=== PATIENT | male | born 1965 | race Caucasian/White ===

== ENCOUNTER 2022-11-30 16:10 | Outpatient (CLI) | payer BC ==
[~2022-11-30 16:10] MED LIST: ATOR40TA72 PO; CELE100C98 PO; DULO60CA65 PO; GABA300C PO; NALT50TA PO; TADA20TA43 PO; TEST100V11 IM; TRAM50TA2 PO
== END 2022-11-30 23:59 | disposition home or self-care (01) ==
LOC: RAD 16:10
PROVIDERS: ATTEND Specialist
DX: S52.021 Displaced fracture of olecranon process without intraarticular extension of right ulna (principal); S53.106A Unspecified dislocation of unspecified ulnohumeral joint, initial encounter; X58.XXXA Exposure to other specified factors, initial encounter; Y93.89 Activity, other specified; Y92.89 Other specified places as the place of occurrence of the external cause; Y99.8 Other external cause status
CPT/HCPCS: 73200

== ENCOUNTER → 2022-12-21 | Day surgery (SDC) | payer BC ==
[~2022-12-21] VITALS: Ht 180.3 cm; Wt 113.1 kg
[~2022-12-21] MED LIST changes: +BUPIVAcaine/PF 2.5 mg/ml (0.25%) 30ml vial ONE; +MIDAZolam 1 MG/ML 5ML VIAL ONE; -TRAM50TA2 PO; +cefazolin 2gm/D5W 100mL 100 ML IV ONE; +cloNIDine hcl/PF 100mcg/ml inj ONE; +famotidine 20mg tablet PO ONE; +fentaNYL /PF 50mcg/ml 5ml ampule ONE; +meperidine/PF 25mg/ml syringe IV PRN; +morphine 2 MG/ML inj. syringe IV PRN; +morphine 4 MG/ML inj SYRINge IV PRN; +ondansetron/PF 4mg/2ml inj IV PRN; +proCHLORperazine 10 MG/2 ml inj IV PRN; +propofol inj 20 ML IV ONE; +ringers solution, lacted 1,000 ML IV SCH
[2022-12-21 10:20] VITALS: BP 126/79
--- NOTE | 2022-12-21 12:30 | NUR ---
DR REILLY CAME TO SEE THE PATIENT. HE HAS DECIDED TO CANCEL THE SURGERY. I DC'D THE PATIENT'S IV AND HE WENT HOME.
== END | disposition home or self-care (01) ==
LOC: UNDOADMIN 10:11 → PAS IN 10:11 → PAS 10:12 → EDSTATUS 11:30
PROVIDERS: ATTEND Specialist
DX: M25.521 Pain in right elbow (principal); Z53.8 Procedure and treatment not carried out for other reasons; S52.021B Displaced fracture of olecranon process without intraarticular extension of right ulna, initial encounter for open fracture type I or II; S53.106A Unspecified dislocation of unspecified ulnohumeral joint, initial encounter; X58.XXXA Exposure to other specified factors, initial encounter; Y93.89 Activity, other specified; Y92.89 Other specified places as the place of occurrence of the external cause; Y99.8 Other external cause status; Z79.899 Other long term (current) drug therapy; Z72.89 Other problems related to lifestyle; Z98.890 Other specified postprocedural states
CPT/HCPCS: 82948; J0690; J0735; J2250; J2704; J3010; J7120; A6449; J3490

== ENCOUNTER 2023-02-01 10:17 | Outpatient (CLI) | payer BC ==
[~2023-02-01 10:17] MED LIST changes: -BUPIVAcaine/PF 2.5 mg/ml (0.25%) 30ml vial ONE; -MIDAZolam 1 MG/ML 5ML VIAL ONE; -cefazolin 2gm/D5W 100mL 100 ML IV ONE; -cloNIDine hcl/PF 100mcg/ml inj ONE; -famotidine 20mg tablet PO ONE; -fentaNYL /PF 50mcg/ml 5ml ampule ONE; -meperidine/PF 25mg/ml syringe IV PRN; -morphine 2 MG/ML inj. syringe IV PRN; -morphine 4 MG/ML inj SYRINge IV PRN; -ondansetron/PF 4mg/2ml inj IV PRN; -proCHLORperazine 10 MG/2 ml inj IV PRN; -propofol inj 20 ML IV ONE; -ringers solution, lacted 1,000 ML IV SCH
[2023-02-01 12:14] LABS: CHOL/HDL RATIO 3.9 (0.00-4.99); CHOLESTEROL 154 MG/DL (0-200); HDL CHOLESTEROL 39 MG/DL (35-60); LDL CHOLESTEROL 99 MG/DL (50-100); TRIGLYCERIDES 72 MG/DL (20-135)
== END 2023-02-01 23:59 | disposition home or self-care (01) ==
LOC: LAB 10:17
PROVIDERS: ATTEND Internal Medicine Interventional Cardiology
DX: U07.1 COVID-19 (principal); Z01.810 Encounter for preprocedural cardiovascular examination; R53.83 Other fatigue; E78.5 Hyperlipidemia, unspecified; I51.4 Myocarditis, unspecified; E78.49 Other hyperlipidemia; G59 Mononeuropathy in diseases classified elsewhere; Z82.49 Family history of ischemic heart disease and other diseases of the circulatory system
CPT/HCPCS: 36415; 80061

== ENCOUNTER 2023-02-01 10:28 | Outpatient (CLI) | payer BC ==
[2023-02-02 09:37] LABS: TRIIODOTHYRONINE (T3) 149 ng/dL (71-180)
== END 2023-02-01 23:59 | disposition home or self-care (01) ==
LOC: LAB 10:28
PROVIDERS: ATTEND Emergency Medicine
DX: E29.1 Testicular hypofunction (principal)
CPT/HCPCS: 36415; 82306; 84402; 84403; 84439; 84443; 84480

== ENCOUNTER 2023-02-02 11:59 | Inpatient (IN) | payer BC ==
[2023-02-01 11:35] LABS: BASOPHILS % (AUTO) 1.1 % (0-1); EOSINOPHILS # (AUTO) 0.3 X10'3 (0-0.9); EOSINOPHILS % (AUTO) 6.3 % (0-6); LYMPHOCYTES # (AUTO) 1.6 X10'3 (1.1-4.8); LYMPHOCYTES % (AUTO) 36.1 % (21-51); MEAN CORPUSCULAR HEMOGLOBIN 31.5 PG (27.0-31.0); MEAN CORPUSCULAR HGB CONC 33.7 g/dL (33.0-36.5); MEAN CORPUSCULAR VOLUME 93.5 FL (78-98); MEAN PLATELET VOLUME 8.5 FL (7.4-10.4); MONOCYTES # (AUTO) 0.4 X10'3 (0-0.9); NEUTROPHILS % (AUTO) 46.5 % (42-75); PRE OP HEMOGLOBIN 14.2 g/dL (14.0-17.9); PRE OP PLATELET COUNT 197 X10'3 (140-440); RED BLOOD COUNT 4.49 X10'6 (4.70-6.10); RED CELL DISTRIBUTION WIDTH 15.1 % (11.5-14.5)
[2023-02-01 11:53] LABS: PRE OP PROTIME 10.6 SECONDS (9.0-12.0)
[2023-02-01 11:55] LABS: ALBUMIN 3.8 G/DL (3.4-5.0); ALBUMIN/GLOBULIN RATIO 1.1 (1.1-1.5); ALKALINE PHOSPHATASE 135 IU/L (46-116); BLOOD UREA NITROGEN 13 MG/DL (7-18); BUN/CREATININE RATIO 15.9 (10.0-20.0); C-REACTIVE PROTEIN 1.42 MG/DL (0.0-0.5); CALCIUM 8.6 MG/DL (8.5-10.1); CHLORIDE 107 MMOL/L (99-107); CREATININE 0.82 MG/DL (0.60-1.10); PRE OP ALT 45 U/L (30-65); PRE OP ANION GAP 8 (8-16); PRE OP AST 22 U/L (10-37); PRE OP BILIRUB, TOTAL 0.6 MG/DL (0.0-1.0); PRE OP GLUCOSE 113 MG/DL (70-104); PRE OP POTASSIUM 4.1 MMOL/L (3.4-5.1); PRE OP SODIUM 140 MMOL/L (135-145); TOTAL PROTEIN 7.3 G/DL (6.4-8.2); eGFR > 90 ML/MIN
[2023-02-02] VITALS (21 sets, daily range): BP systolic 106–140; BP diastolic 51–92
[~2023-02-02] VITALS: Ht 180.3 cm; Wt 115.1 kg
[~2023-02-02 11:59] MED LIST changes: -NALT50TA PO; -TADA20TA43 PO; -TEST100V11 IM; +cefazolin 2gm/D5W 100mL 100 ML IV ONE; +famotidine 20mg tablet PO ONE; +ringers solution, lacted 1,000 ML IV SCH
[2023-02-02] MEDS ORDERED: labetalol 20mg/4ml (5mg/ml) syringe IV PRN (12:10)
[2023-02-02] MEDS ORDERED: ondansetron/PF 4mg/2ml inj IV PRN ×2 (12:10→14:25)
[2023-02-02] MEDS ORDERED: HYDROmorphone/PF 0.2 MG/ML SYRINGE IV PRN ×2 (12:10)
[2023-02-02] MEDS ORDERED: hydrALAZINE 20mg/ml inj. IV PRN (12:10)
[2023-02-02] MEDS ORDERED: ringers solution, lacted 1,000 ML IV SCH (12:10)
[2023-02-02] MEDS ORDERED: fentaNYL/PF 50MCG/1 ML 2ML syringe IV PRN ×2 (12:10)
[2023-02-02] MEDS ORDERED: tobramycin sulfate 1.2gm vial IR ONE ×2 (12:45→15:39)
[2023-02-02] MEDS ORDERED: vancomycin 1,000mg inj ONE (14:11)
[2023-02-02] MEDS ORDERED: ROPIVAcaine 0.5% (5mg/ml) 30ml vial ONE ×2 (14:19→14:20)
[2023-02-02] MEDS ORDERED: ondansetron/PF 4mg/2ml inj ONE (14:20)
[2023-02-02] MEDS ORDERED: propofol inj 20 ML IV ONE ×2 (14:20)
[2023-02-02] MEDS ORDERED: LIDOcaine 2% (20mg/ml) 5ml vial ONE (14:20)
[2023-02-02] MEDS ORDERED: midazolam 1 mg/ML 2ml injection ONE (14:22)
[2023-02-02] MEDS ORDERED: fentaNYL /PF 50mcg/ml 5ml ampule ONE (14:22)
[2023-02-02] MEDS ORDERED: magnesium hydroxide 30ml (MOM) UD suspension PO PRN (14:25)
[2023-02-02] MEDS ORDERED: acetaminophen 325mg tablet PO PRN (14:25)
[2023-02-02] MEDS ORDERED: HYDROcodone/acetaminophen 10/325mg tab PO PRN (14:25)
[2023-02-02] MEDS ORDERED: bisacodyl 10mg suppository rectal RC PRN (14:25)
[2023-02-02] MEDS ORDERED: diphenhydrAMINE 25mg capsule PO PRN (14:25)
[2023-02-02] MEDS ORDERED: naloxone 0.4 mg/ml inj IV PRN (14:25)
[2023-02-02] MEDS ORDERED: acetaminophen 1,000mg/100ml IV 100 ML IV ONE (14:49)
[2023-02-02] MEDS: potassium cl 20mEq in 1/2 NS 1,000 ML IV SCH ×2 (15:30→23:16)
[2023-02-02] MEDS ORDERED: vancomycin/NS 1 GM ADD-VANTAGE 250 ML IV SCH (20:00)
--- NOTE | 2023-02-02 20:08 | NUR ---
PATIENT TAKEN TO PCU FLOOR ROOM WITH ALL BELONGINGS AND HOOKED UP TO ALL MONITORS IN ROOM AND REPORT GIVEN TO RN WHO HAS TAKEN OVER PATIENT CARE. Addendum: 02/02/23 at 2017 by Tammy Baumann RN Amended: Links added.
--- NOTE | 2023-02-02 20:30 | NUR ---
Pt admitted to floor at approx 2030 via bed, recovery called report prior to transfer. Pt had been in recovery for 2-3 hours. Vitals stable. Pt had I/D of R elbow, with implant removal. Pt given brachial block, no c/o pain at admission. Pt to keep sling on at all times. Hx extended COVID-pt has c/o peripheral neuropathy, treated with meds. Pt vitals stable, skin CDI. PIV LW 20. Pt sat monitored prior to sleep, 90% on RA, pt agreed to 2L nc while sleeping to keep O2 level above 90%. Pt ate a sandwich, crackers and drank orange juice, no c/o nausea. Pt is stable and resting comfortably.
--- NOTE | 2023-02-03 02:22 | NUR ---
I AGREE WITH CAN TECHNICIAN ASSESSMENT
[2023-02-03 03:12] VITALS: BP 110/60
[2023-02-03 06:00] VITALS: BP 111/65
--- NOTE | 2023-02-03 06:30 | NUR ---
Received report from JOSHUA Glover. Reprioritized patients plan of care. Pt checked on, NAD at this time. Call stallworth within reach, bed locked/ lowest position.
[2023-02-03 07:37] LABS: BASOPHILS % (AUTO) 0.2 % (0-1); EOSINOPHILS % (AUTO) 0 % (0-6); LYMPHOCYTES # (AUTO) 1.2 X10'3 (1.1-4.8); MONOCYTES # (AUTO) 0.4 X10'3 (0-0.9)
[2023-02-03 07:40] LABS: HEMATOCRIT 38.6 % (42.0-52.0); HEMOGLOBIN 13.2 g/dl (14.0-17.9); LYMPHOCYTES % (AUTO) 15.5 % (21-51); MEAN CORPUSCULAR HEMOGLOBIN 32.1 PG (27.0-31.0); MEAN CORPUSCULAR HGB CONC 34.3 g/dL (33.0-36.5); MEAN CORPUSCULAR VOLUME 93.7 FL (78-98); MEAN PLATELET VOLUME 8.3 FL (7.4-10.4); MONOCYTES % (AUTO) 5.7 % (2-12); NEUTROPHILS # (AUTO) 6.2 X10'3 (1.8-7.7); NEUTROPHILS % (AUTO) 78.6 % (42-75); PLATELET COUNT 201 X10'3 (140-440); RED BLOOD COUNT 4.12 X10'6 (4.70-6.10); RED CELL DISTRIBUTION WIDTH 14.8 % (11.5-14.5); WHITE BLOOD COUNT 7.9 X10'3 (4.5-11.0)
[2023-02-03 07:43] LABS: ANION GAP 10 (8-16); CHLORIDE 105 MMOL/L (99-107); POTASSIUM 4.3 MMOL/L (3.5-5.1); SODIUM 139 MMOL/L (135-145); TOTAL CARBON DIOXIDE 24.3 MMOL/L (24-32)
[2023-02-03] MEDS: vancomycin/NS 1 GM ADD-VANTAGE 250 ML IV SCH ×3 (08:03→23:25)
[2023-02-03] MEDS: HYDROcodone/acetaminophen 10/325mg tab PO PRN ×4 (08:45→20:31)
[2023-02-03 11:00] VITALS: BP 114/63
[2023-02-03] MEDS ORDERED: gabapentin 300mg capsule PO ONE (14:21)
[2023-02-03] MEDS ORDERED: celeCOXIB 100mg capsule PO ONE (14:21)
[2023-02-03 18:00] VITALS: BP 105/59
[2023-02-03] MEDS: potassium cl 20mEq in 1/2 NS 1,000 ML IV SCH (18:10)
[2023-02-03] MEDS: duloxetine 30mg CAPSULE.DR PO SCH (20:19)
[2023-02-03] MEDS: gabapentin 300mg capsule PO SCH (20:19)
[2023-02-03] MEDS ORDERED: VANCOMYCIN LEVEL IV ONE (22:30)
[2023-02-04 02:00] VITALS: BP 113/73
[2023-02-04] MEDS: HYDROcodone/acetaminophen 10/325mg tab PO PRN ×3 (05:08→15:19)
[2023-02-04 06:00] VITALS: BP 95/54
--- NOTE | 2023-02-04 06:27 | NUR ---
Problems reprioritized. Patient report given, questions answered & plan of care reviewed with to day FLIGHT SOFTWARE TEST ENGINEER.
--- NOTE | 2023-02-04 06:43 | NUR ---
Patient in room PCU 3019. I have received report from Martínez APARICIO and had the opportunity to ask questions and assume patient care. Pt found slightly right side lying. No distress noted. Pt is snoring. Even rise and fall of chest. Pt right arm in sling. Bed in lowest position. Fall precautions observed.
--- NOTE | 2023-02-04 06:43 | NUR ---
Patient in room U 3021. I have received report from Griselda APARICIO and had the opportunity to ask questions and assume patient care. Pt found slightly right side lying. No distress noted. Pt is snoring. Even rise and fall of chest. Pt right arm in sling. Bed in lowest position. Fall precautions observed. Addendum: 02/04/23 at 0644 by Naveed Meredith LVN, LVN Amended: Links added.
[2023-02-04] MEDS ORDERED: VANCOMYCIN LEVEL IV ONE (07:00)
[2023-02-04] MEDS ORDERED: hydrALAZINE 20mg/ml inj. IV PRN (07:05)
[2023-02-04] MEDS ORDERED: ringers solution, lacted 1,000 ML IV SCH (07:05)
[2023-02-04] MEDS ORDERED: labetalol 20mg/4ml (5mg/ml) syringe IV PRN (07:05)
[2023-02-04] MEDS ORDERED: morphine 4 MG/ML inj SYRINge IV PRN (07:05)
[2023-02-04] MEDS ORDERED: ondansetron/PF 4mg/2ml inj IV PRN (07:05)
[2023-02-04] MEDS ORDERED: morphine 2 MG/ML inj. syringe IV PRN (07:05)
[2023-02-04 07:18] LABS: BASOPHILS # (AUTO) 0.1 X10'3 (0-0.2); BASOPHILS % (AUTO) 0.8 % (0-1); EOSINOPHILS # (AUTO) 0.1 X10'3 (0-0.9); EOSINOPHILS % (AUTO) 1.7 % (0-6); HEMATOCRIT 36.9 % (42.0-52.0); HEMOGLOBIN 12.6 g/dl (14.0-17.9); LYMPHOCYTES # (AUTO) 2.6 X10'3 (1.1-4.8); LYMPHOCYTES % (AUTO) 38.7 % (21-51); MEAN CORPUSCULAR HEMOGLOBIN 32.2 PG (27.0-31.0); MEAN CORPUSCULAR VOLUME 94.8 FL (78-98); MONOCYTES # (AUTO) 0.6 X10'3 (0-0.9); MONOCYTES % (AUTO) 8.8 % (2-12); NEUTROPHILS # (AUTO) 3.4 X10'3 (1.8-7.7); PLATELET COUNT 180 X10'3 (140-440); RED CELL DISTRIBUTION WIDTH 15.2 % (11.5-14.5); WHITE BLOOD COUNT 6.7 X10'3 (4.5-11.0)
[2023-02-04] MEDS: potassium cl 20mEq in 1/2 NS 1,000 ML IV SCH (07:30)
[2023-02-04] MEDS: vancomycin/NS 1 GM ADD-VANTAGE 250 ML IV SCH (07:58)
[2023-02-04] MEDS ORDERED: atorvastatin 20mg tablet PO SCH (08:00)
[2023-02-04] MEDS ORDERED: celeCOXIB 100mg capsule PO SCH (08:00)
[2023-02-04] MEDS: duloxetine 30mg CAPSULE.DR PO SCH (08:57)
[2023-02-04] MEDS: gabapentin 300mg capsule PO SCH (08:58)
[2023-02-04 11:00] VITALS: BP 116/62
[2023-02-04] MEDS ORDERED: LINE600T11 PO (13:30)
[2023-02-04] MEDS ORDERED: HYDR-3972 PO (13:30)
[2023-02-04] MEDS ORDERED: VANCOmycin 1250MG/NS 250ml Bag 250 ML IV SCH (15:00)
--- NOTE | 2023-02-04 15:53 | NUR ---
All written and verbal instructions provided to patient. All questions answered. PIV discontinued. Pt verbalized understanding. Pt assisted to change into scrub bottoms. Pt transfers with quad cane. Pt ambulated to family vehicle via wheelchair. Dr. Carney appointment for 02/17. Per Deborah VALDEZ, Dr. Carney would like pt to be seen on 02/11. Left for Orthopedic to call [facility]. Addendum: 02/04/23 at 1614 by Naveed Meredith LVN, LVN Amended: Links added.
--- NOTE | 2023-02-04 16:32 | NUR ---
DIRECTOR OF CASEWORK DEPARTMENT documentation: I have reviewed and agree with all interventions, assessments performed and documented by CURTIS WALLACE LVN .
--- NOTE | 2023-02-04 16:47 | NUR ---
Spoke with Pharmacist at [facility]. He stated that the Zyvox (brand name) is $7,000. He requests if MD can approve generic. Deborah VALDEZ acknowledged that patient may have Zyvox generic if available. [facility] Pharmacist acknowledge PA message.
[2023-02-05] MEDS ORDERED: VANCOMYCIN LEVEL IV ONE (14:30)
== END 2023-02-04 15:46 | disposition home or self-care (01) | DRG 507 ==
LOC: PAS IN 11:59 → UNDOADMIN 11:59 → EDSTATUS 14:30 → PAS IN 14:30 → PCU 3S 20:05
PROVIDERS: ADMIT Specialist; ATTEND Specialist
PROC: 0PBK0ZZ Excision of Right Ulna, Open Approach (ICD-10-PCS; 2023-02-02)
PROC: 3E0U029 Introduction of Other Anti-infective into Joints, Open Approach (ICD-10-PCS; 2023-02-02)
PROC: 3E0T3BZ Introduction of Anesthetic Agent into Peripheral Nerves and Plexi, Percutaneous Approach (ICD-10-PCS; 2023-02-02)
PROC: 3E0T33Z Introduction of Anti-inflammatory into Peripheral Nerves and Plexi, Percutaneous Approach (ICD-10-PCS; 2023-02-02)
PROC: 0RPL04Z Removal of Internal Fixation Device from Right Elbow Joint, Open Approach (ICD-10-PCS; principal; 2023-02-02 14:21)
DX: T84.59XA Infection and inflammatory reaction due to other internal joint prosthesis, initial encounter (principal); S52.021 Displaced fracture of olecranon process without intraarticular extension of right ulna; E78.00 Pure hypercholesterolemia, unspecified; G62.9 Polyneuropathy, unspecified; Y83.8 Other surgical procedures as the cause of abnormal reaction of the patient, or of later complication, without mention of misadventure at the time of the procedure; Y92.89 Other specified places as the place of occurrence of the external cause; Z86.16 Personal history of COVID-19; Z79.899 Other long term (current) drug therapy
CPT/HCPCS: 36415; 71045; 73080; 76000; 80051; 80053; 80202; 82948; 85025; 85610; 85651; 85730; 86140; 87070; 87075; 87081; 87102; 93005; 97116; 97161; 97530; G0378; J0131; J0690; J2250; J2405; J2704; J2795; J3010; J3260; J3370; J3490; J7120

== ENCOUNTER 2023-09-23 17:43 | Emergency (ER) | payer BC ==
[~2023-09-23] VITALS: Ht 182.9 cm; Wt 104.5 kg
[~2023-09-23 17:43] MED LIST changes: +CELE-148 PO; -CELE100C98 PO; +HYDR-3972 PO; -cefazolin 2gm/D5W 100mL 100 ML IV ONE; -famotidine 20mg tablet PO ONE; -ringers solution, lacted 1,000 ML IV SCH
[2023-09-23 17:58] VITALS: BP 143/99; RESP 20; TEMP 97.8; O2SAT 94
[2023-09-23] MEDS: proparacaine 0.5% ophthalmic drops 15ml EACHEYE ONE (18:14)
== END 2023-09-23 19:54 ==
LOC: ER 17:45
DX: S20.211A Contusion of right front wall of thorax, initial encounter (principal); H10.213 Acute toxic conjunctivitis, bilateral; Z79.899 Other long term (current) drug therapy; Z79.2 Long term (current) use of antibiotics; X58.XXXA Exposure to other specified factors, initial encounter; Y93.89 Activity, other specified; Y92.89 Other specified places as the place of occurrence of the external cause; Y99.8 Other external cause status
CPT/HCPCS: 71100; 99283